=== PATIENT | female | born 1990 | race Hispanic/Latino ===

== ENCOUNTER 2017-09-08 13:41 | Emergency (ER) | payer OTHER ==
[~2017-09-08] VITALS: Ht 157.5 cm; Wt 63.6 kg
[2017-09-08] MEDS ORDERED: NS 1,000 ML IV ONE (14:15)
[2017-09-08 14:56] LABS: MEAN CORPUSCULAR HEMOGLOBIN 29.1 pg (27.0-33.0); MEAN CORPUSCULAR HGB CONC 32.2 g/dl (32.0-36.5); MEAN CORPUSCULAR VOLUME 90.5 fl (80.0-96.0); PLATELET COUNT, AUTOMATED 244 10^3/uL (150-450); RED CELL DISTRIBUTION WIDTH 12.2 % (11.5-14.5); WHITE BLOOD COUNT 9.5 10^3/uL (4.0-10.0)
[2017-09-08 15:19] LABS: ANION GAP 8 MEQ/L (8-16); BLOOD UREA NITROGEN 8 MG/DL (7-18); CALCIUM LEVEL 9.5 MG/DL (8.5-10.1); CARBON DIOXIDE LEVEL 27 MEQ/L (21-32); CHLORIDE LEVEL 106 MEQ/L (98-107); CONTROL LINE HCG INT CTR LINE PRESENT; CREATININE FOR GFR 0.83 MG/DL (0.55-1.02); GLOMERULAR FILTRATION RATE > 60.0 (>60); GLUCOSE, FASTING 117 MG/DL (70-105); POTASSIUM SERUM 3.9 MEQ/L (3.5-5.1); SODIUM LEVEL 141 MEQ/L (136-145)
--- NOTE | 2017-09-08 15:36 | ECGEPIP ---
Stationary ECG Study [facility] - ED Test Date: 2017-09-08 Pat Name: ALEKSANDAR TIWARI Department: Room: - Gender: F [employer] Administrator: hcantelle : 1990 Requested By: Yanet Mireles Order Number: [id number] Reading MD: James Finley Measurements Intervals [place] Rate: 88 P: 49 NC: 139 QRS: 44 QRSD: 93 T: 35 QT: 350 QTc: 424 Interpretive Statements SINUS RHYTHM BENIGN EARLY REPOLARIZATION NO PRIORS FOR COMPARISON Electronically Signed On 09-08-2017 15:36:21 EST by James Finley
--- NOTE | 2017-09-08 15:56 | REP ---
CT Head without contrast HISTORY: Trauma COMPARISON: None There is no intraparenchymal hemorrhage, acute infarct, mass or midline shift. The ventricular system is normal in appearance. There is no extra cerebral collection. There is no fracture. The visualized sinuses are clear. IMPRESSION: There is no intracranial lesion. Signed by Leonides Regalado MD 09/08/2017 03:47 P
[2017-09-08 16:50] VITALS: BP 127/61
== END 2017-09-08 17:01 | disposition home or self-care (01) ==
LOC: M ED 13:41
DX: R55 Syncope and collapse (principal); S00.83XA Contusion of other part of head, initial encounter; W22.8XXA Striking against or struck by other objects, initial encounter; Y92.018 Other place in single-family (private) house as the place of occurrence of the external cause; Y93.89 Activity, other specified; Y99.8 Other external cause status

== ENCOUNTER → 2017-10-28 | Outpatient (REF) | payer OTHER | LOC: M LAB REF 09:49 | DX: R30.0 Dysuria (principal) ==

== ENCOUNTER → 2018-02-16 | Outpatient (REF) | payer OTHER | LOC: M LAB REF 17:07 | DX: N39.0 Urinary tract infection, site not specified (principal) | CPT/HCPCS: 87186 ==